=== PATIENT | female | born 1950 | race Caucasian/White ===

== ENCOUNTER 2016-08-31 12:06 | Emergency (ER) | payer OTHER ==
[2016-08-31 12:50] VITALS: BP 105/66
--- NOTE | 2016-08-31 14:54 | UC ---
Tamir Cleary Anna, scribed for Cathy Cooper DO on 08/31/16 at 1358 . Respiratory Complaint HPI - HPI Summary HPI Summary: Patient is a 66 y/o female coming to [facility] [place] presenting with the gradual onset of an intermittent cough that began four days ago. The cough is unproductive today. Yesterday, it was a productive cough with yellow sputum. This has been accompanied by a sore, scratchy throat and rhinorrhea. Her chest has felt congested. She denies SOB, sinus pain, n/v/d, dysuria, rash, KUMARI. She thinks she may have uncovered some mold while sorting a compost pile. Her history is significant for COPD. She has been taking allergy shots, but her typical allergies do not extend into her chest and feel like these symptoms. Patient medications were reviewed this visit. - History of Current Complaint Chief Complaint: UCRespiratory Stated Complaint: RESP ISSUE Hx Obtained From: Patient ?: No Onset/Duration: Gradual Onset, Lasting Days, Still Present Timing: Intermittent Episodes Severity Initially: Moderate Severity Currently: Moderate Aggravating Factors: Allergens - exposure to mold Alleviating Factors: Nothing Associated Signs And Symptoms: Positive: URI, Nasal Congestion. Negative: Sinus Discomfort Related History: Seasonal Allergies - Allergies/Home Medications Allergies/Adverse Reactions: Allergies Allergy/AdvReac Type Severity Reaction Status Date / Time Sulfa Drugs Allergy Unknown Hives/Diff. Unverified 08/31/16 12:51 Breathing/I tching Amoxicillin Allergy Hives/Diff. Verified 08/31/16 12:51 Breathing/I tching Penicillins [PCN] Allergy Hives/Diff. Verified 08/31/16 12:51 Breathing/I tching Home Medications: Home Medications Cholecalciferol TAB* [Vitamin D TAB*] 1,000 unit PO DAILY 08/31/16 [History Confirmed 08/31/16] PMH/Surg Hx/FS Hx/Imm Hx Endocrine History Of: Denies: Diabetes Cardiovascular History Of: Denies: Cardiac Disorders, Hypertension, Congestive Heart Failure Respiratory History Of: Reports: COPD GI/ History Of: Denies: Renal Disease Psychological History Of: Reports: Depression - Surgical History Surgical History: Yes Surgery Procedure, Year, and Place: TUBAL LIGATION - Family History Known Family History: Negative: Cardiac Disease, Hypertension, Diabetes - Social History Occupation: Unemployed Lives: With Family Alcohol Use: Occasionally Substance Use Type: None Smoking Status (MU): Former Smoker Review of Systems Constitutional: Negative Skin: Negative Eyes: Negative ENT: Sore Throat, Nasal Discharge Respiratory: Cough, Other - chest congestion Cardiovascular: Negative Gastrointestinal: Negative Genitourinary: Negative Motor: Negative Neurovascular: Negative Musculoskeletal: Negative Neurological: Negative Psychological: Negative All Other Systems Reviewed And Are Negative: Yes Physical Exam Triage Information Reviewed: Yes Appearance: Well-Appearing, No Pain Distress, Well-Nourished Vital Signs: Initial Vital Signs Temp 100.3 F 08/31/16 12:46 Pulse 73 08/31/16 12:46 Resp 16 08/31/16 12:46 BP 105/66 08/31/16 12:46 Pulse Ox 98 08/31/16 12:46 Vital Signs Reviewed: Yes Eyes: Positive: Conjunctiva Clear. Negative: Discharge ENT: Positive: Hearing grossly normal, TMs normal, Other: - Pale, boggy nasal mucosa. Negative: Tonsillar swelling, Tonsillar exudate, Trismus, Muffled/ hoarse voice Neck: Positive: Supple, Nontender Respiratory: Positive: Lungs clear, Normal breath sounds, No respiratory distress, No accessory muscle use, Other: - Prolonged expiration at bases bilaterally Cardiovascular: Positive: RRR, No Murmur Musculoskeletal Exam: Normal Neurological: Positive: Alert, Muscle Tone Normal Psychological Exam: Normal Psychological: Positive: Age Appropriate Behavior Skin Exam: Other - warm, dry, normal color UC Diagnostic Evaluation - Laboratory O2 Sat by Pulse Oximetry: 98 Respiratory Course/Dx - Differential Dx/Diagnosis Differential Diagnosis/HQI/PQRI: Bronchitis, Exacerbation Of COPD, Lower Resp Infection, Other - allergies, uri Provider Diagnoses: uri. Bronchospasm. Discharge - Discharge Plan Condition: Stable Disposition: HOME Prescriptions: Albuterol HFA INHALER* [Ventolin HFA Inhaler*] 2 puff INH Q4H PRN #1 mdi PRN Reason: Sob/Wheezing Benzonatate CAP* [Tessalon 100 MG CAP*] 100 mg PO TID #30 cap guaiFENesin ER TAB [Mucinex*] 600 mg PO BID PRN #1 box PRN Reason: Cough guaiFENesin/CODIEN 100MG-10MG* [Robitussin AC 100Mg-10Mg*] 5 - 10 ml PO BEDTIME PRN #100 udc MDD 10ml PRN Reason: Cough Patient Education Materials: Upper Respiratory Infection (ED), Bronchospasm (ED ) Referrals: Luiz Chaves MD [Primary Care Provider] - (Follow up in 5-7 days for re- evaluation. Follow up sooner if symptoms worsen or new symptoms develop.) Additional Instructions: REMEMBER, POSTURE IS AN IMPORTANT FACTOR IN SINUS DRAINAGE. MOVE YOUR NECK, BREATHE. INHALED BRONCHODILATORS: You have received a prescription for an inhaled bronchodilator -- a medication which stimulates the airways in the lung to dilate. This improves the flow of air in asthma, bronchitis, and emphysema. These medicines have some similarity to adrenaline, and can cause similar side effects: shakiness, racing heart, and a sense of nervousness. These side effects decrease with time. Contact your doctor if these side effects are severe. Do not over-use the medicine. Too-frequent use of the inhaler may make it ineffective. Call your doctor if the inhaler is not controlling your symptoms at the prescribed doses. COUGH-SUPPRESSANT & EXPECTORANT MEDICATION: You are to use a cough medication as needed for relief of symptoms. This medicine is a combination of an expectorant (to make the mucous thinner and more easily "coughed up") and a cough suppressant (to reduce the frequency of coughing). The cough-suppressant medicine is related to narcotics. You may experience mild nausea and sleepiness. Some patients who are very sensitive to narcotics may have stomach pain from this medicine. Taking the medicine with food reduces these side effects. Do not drive or work with machinery until you know how this medicine affects you. The expectorant should have no side effects. Iodine-containing expectorants (such as organidin) should not be taken by persons with active thyroid disease unless approved by your doctor. Call the doctor if you develop shortness of breath, hives, rash, itching, lightheadedness, or severe nausea and vomiting. THIS MEDICATION CAN MAKE YOU GROGGY AND UNSTABLE OF YOUR FEET. SO PLEASE TAKE CARE WHEN GOING FROM LAYING DOWN TO SEATED OR WHEN STANDING UP. IF YOU FEEL LIGHT HEADED WHEN CHANGING POSITIONS, PLEASE SIT OR LAY BACK DOWN TO AVOID FALLING. ESPECIALLY WHEN WAKING UP AT NIGHT TO PEE. EXPECTORANT MEDICATION: WE SENT IN A SCRIPT FOR MUCINEX SO THAT IT IS EASIER FOR YOU TO PICK THE RIGHT MED AT THE PHARMACY. HOWEVER, YOU CAN ALSO GO TO THE [facility]ORE AND BUY PLAIN GUAIFENESIN WITHOU BINDERS OR FILLERS. An expectorant medicine has been prescribed. This type of drug makes mucous thinner, helping the sinuses, nose, and bronchial tubes to remain free of pus and mucous. Expectorants make a cough less severe and more comfortable, and help infected sinuses drain. In general, antihistamines defeat the purpose of the expectorant by making mucous thicker. They should be avoided unless specifically recommended by your physician. TESSALON PERLES: You have received a prescription for Tessalon Perles (benzonatate). This is a non-narcotic medicine for relief of cough. It usually works in about 15- 20 minutes and lasts around four hours. Tessalon Perles should be swallowed. They should not be chewed or dissolved in the mouth (this can produce temporary numbing of the mouth and choking can occur). If you develop any adverse effects such as wheezing, shortness of breath, hives, rash, itching, or lightheadedness, please return at once. The documentation as recorded by the Tamir mendoza Anna accurately reflects the service I personally performed and the decisions made by me, Cathy Cooper DO.
== END 2016-08-31 14:32 | disposition home or self-care (01) ==
LOC: UCEAST 12:06
DX: J06.9 Acute upper respiratory infection, unspecified (principal); J98.01 Acute bronchospasm; J44.9 Chronic obstructive pulmonary disease, unspecified; F32.9 Major depressive disorder, single episode, unspecified; Z88.1 Allergy status to other antibiotic agents; Z88.0 Allergy status to penicillin; Z88.2 Allergy status to sulfonamides; Z87.891 Personal history of nicotine dependence
CPT/HCPCS: 99202; G0463

== ENCOUNTER 2017-12-14 18:41 | Emergency (ER) | payer OTHER ==
--- OUTSIDE RECORDS SUMMARY | 2017-12-14 18:46 | XMS REPORT ---
:1950 External Reference #:[id number] Author Organization [facility] Address [address] [place] [address] Phone [phone] Care Team Providers Name Role Phone Luiz Chaves M.D. 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 Primary Care Physician Unavailable Payers Type Date Identification Numbers Payment Provider Subscriber Commercial Effective: Policy Number: [id number] [facility] Raina Spence 2017 Group Number: [id number] [id number] Group Name: Medicare Plan [place] [address] PayID: [id number] [facility] Part B Effective: Policy Number: [employer] Raina Gore 2015 [id number] Healthcare Jordy Expires: 2017 Group Number: [id number] [address] Group [place]: [place] [address] PayID: [id number] [place] Part B Effective: Policy Number: [employer] Raina Gore 2012 [id number] Healthcare Yaimavear Expires: 2015 Group Number: [id number] [address] Group [place]: [place] [address] PayID: [id number] Problems Date Description Provider Status Onset: 06/27/2013 Allergic rhinitis Sean Souza M.D. Active Onset: 09/07/2014 Body Mass Index Between 19-24 Adult Sean Souza M.D. Active Onset: 08/30/2015 Body mass index (BMI) 19.9 or less, Sean Souza M.D. Active adult Family History Date Family Member(s) Problem(s) Comments General Seasonal Allergies General Hypertension General Migraine Mother Seasonal Allergies Mother Migraine Social History Type Date Description Comments Marital Status Legal Status: Lives With Spouse Home Environment Has a window air conditioner Home Environment Unfinished Basement Home Environment Finished Basement Home Environment The basement is wet and dehumidifier used Home Environment The basement is dry Home Environment Uses a dehumidifier Home Environment The home is not michael Home Environment The floors are carpeted Home Environment The floors are wood Home Environment Uses natural gas heating Home Environment Uses forced air heating Home Environment [place] Home Environment Water Source: Well Smoke-Free Home is not smoke-free Smoke-Free Work is smoke-free 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 weeks Magnesium Active Tablets 400(241.3Mg Unknown Oxide 000 ) mg Xyzal Active Tablets 5mg 1 by mouth Unknown 000 every day Medications Administered in Office Medication Date Status Form Strength Qnty SIG Indications Ordering Provider Injection 12/01/19 Administered Injection Allergy 18 Injection Injection 11/17/19 Administered Injection Allergy 18 Injection Injection 11/03/19 Administered Injection Allergy 18 Injection Injection 10/20/19 Administered Injection Sean Souza M.D. Injection 10/20/19 Administered Injection Allergy 18 Injection Injection 10/06/19 Administered Injection Allergy 18 Injection Injection 09/24/19 Administered Injection Allergy 18 Injection Injection 09/08/19 Administered Injection Allergy 18 Injection Injection 08/18/19 Administered Injection Allergy 18 Injection Injection 08/04/19 Administered Injection Allergy 18 Injection Injection 07/21/19 Administered Injection Allergy 18 Injection Injection 07/07/19 Administered Injection Allergy 18 Injection Injection 06/23/19 Administered Injection Allergy 18 Injection Injection 06/09/19 Administered Injection Allergy 18 Injection Injection 05/25/19 Administered Injection Allergy 18 Injection Injection 05/11/19 Administered Injection Allergy 18 Injection Injection 04/27/19 Administered Injection Allergy 18 Injection Injection 04/13/19 Administered Injection Allergy 18 Injection Injection 03/25/20 Administered Injection Allergy 17 Injection Injection 03/09/20 Administered Injection Allergy 17 Injection Injection 02/24/20 Administered Injection Allergy 17 Injection Injection 02/10/20 Administered Injection Allergy 17 Injection Injection 01/27/20 Administered Injection Allergy 17 Injection Injection 01/13/20 Administered Injection Sean Gates 17 Aruna Souza Injection 01/13/20 Administered Injection Allergy 17 Injection Injection 12/30/19 Administered Injection Allergy 17 Injection Injection 12/16/19 Administered Injection Sean Gates 17 Aruna Souza Injection 12/16/19 Administered Injection Allergy 17 Injection Injection 12/02/19 Administered Injection Allergy 17 Injection Injection 11/18/19 Administered Injection Allergy 17 Injection Injection 11/04/19 Administered Injection Allergy 17 Injection Injection 10/21/19 Administered Injection Allergy 17 Injection Injection 10/07/19 Administered Injection Allergy 17 Injection Injection 09/23/19 Administered Injection Allergy 17 Injection Injection 09/09/19 Administered Injection Allergy 17 Injection Injection 08/26/19 Administered Injection Allergy 17 Injection Injection 08/12/19 Administered Injection Allergy 17 Injection Injection 07/29/19 Administered Injection Allergy 17 Injection Injection 07/15/19 Administered Injection Sean Gates 17 Aruna Souza Injection 07/15/19 Administered Injection Allergy 17 Injection Injection 07/01/19 Administered Injection Allergy 17 Injection Injection 06/17/19 Administered Injection Allergy 17 Injection Injection 06/02/19 Administered Injection Allergy 17 Injection Injection 05/19/19 Administered Injection Allergy 17 Injection Injection 05/05/19 Administered Injection Allergy 17 Injection Injection 04/23/19 Administered Injection Allergy 17 Injection Injection 04/14/19 Administered Injection Allergy 17 Injection Injection 04/02/20 Administered Injection Allergy 16 Injection Injection 03/17/20 Administered Injection Allergy 16 Injection Injection 03/03/20 Administered Injection Allergy 16 Injection Injection 02/18/20 Administered Injection Allergy 16 Injection Injection 02/04/20 Administered Injection Sean Gates 16 Aruna Souza Injection 02/04/20 Administered Injection Allergy 16 Injection Injection 01/21/20 Administered Injection Allergy 16 Injection Injection 01/07/20 Administered Injection Sean Gates 16 Aruna Souza Injection 01/07/20 Administered Injection Allergy 16 Injection Injection 12/24/19 Administered Injection Allergy 16 Injection Injection 12/12/19 Administered Injection Allergy 16 Injection Injection 11/26/19 Administered Injection Allergy 16 Injection Injection 11/12/19 Administered Injection Allergy 16 Injection Injection 10/29/19 Administered Injection Sean WColton 16 Aruna Souza Injection 10/29/19 Administered Injection Allergy 16 Injection Injection 10/15/19 Administered Injection Sean WColton 16 Aruna Souza Injection 10/15/19 Administered Injection Allergy 16 Injection Injection 10/01/19 Administered Injection Allergy 16 Injection Injection 09/17/19 Administered Injection Allergy 16 Injection Injection 09/05/19 Administered Injection Allergy 16 Injection Injection 08/27/19 Administered Injection Allergy 16 Injection Injection 08/20/19 Administered Injection Sean WColton 16 Aruna Souza Injection 08/20/19 Administered Injection Allergy 16 Injection Injection 08/13/19 Administered Injection Allergy 16 Injection Injection 08/06/19 Administered Injection Allergy 16 Injection Injection 07/30/19 Administered Injection Allergy 16 Injection Injection 07/23/19 Administered Injection Allergy 16 Injection Injection 07/16/19 Administered Injection Allergy 16 Injection Injection 07/09/19 Administered Injection Allergy 16 Injection Injection 07/02/19 Administered Injection Allergy 16 Injection Injection 06/25/19 Administered Injection Allergy 16 Injection Injection 06/18/19 Administered Injection Allergy 16 Injection Injection 06/11/19 Administered Injection Allergy 16 Injection Injection 06/04/19 Administered Injection Allergy 16 Injection Injection 05/28/19 Administered Injection Allergy 16 Injection Injection 05/21/19 Administered Injection Allergy 16 Injection Injection 05/14/19 Administered Injection Allergy 16 Injection Injection 05/07/19 Administered Injection Allergy 16 Injection Injection 04/30/19 Administered Injection Allergy 16 Injection Injection 04/23/19 Administered Injection Allergy 16 Injection Injection 04/09/19 Administered Injection Allergy 16 Injection Injection 04/02/20 Administered Injection Allergy 15 Injection Injection 03/26/20 Administered Injection Allergy 15 Injection Injection 03/19/20 Administered Injection Allergy 15 Injection Injection 03/12/20 Administered Injection Allergy 15 Injection Injection 03/05/20 Administered Injection Allergy 15 Injection Injection 02/27/20 Administered Injection Sean WColton 15 Aruna Souza Injection 02/27/20 Administered Injection Allergy 15 Injection Injection 02/20/20 Administered Injection Allergy 15 Injection Injection 02/13/20 Administered Injection Allergy 15 Injection Injection 02/06/20 Administered Injection Allergy 15 Injection Injection 01/30/20 Administered Injection Allergy 15 Injection Injection 01/23/20 Administered Injection Allergy 15 Injection Injection 01/16/20 Administered Injection Allergy 15 Injection Injection 01/09/20 Administered Injection Allergy 15 Injection Injection 01/02/20 Administered Injection Allergy 15 Injection Injection 12/26/19 Administered Injection Allergy 15 Injection Injection 12/19/19 Administered Injection Allergy 15 Injection Injection 12/14/19 Administered Injection Allergy 15 Injection Injection 12/05/19 Administered Injection Allergy 15 Injection Injection 11/28/19 Administered Injection Allergy 15 Injection Injection 11/21/19 Administered Injection Allergy 15 Injection Injection 11/14/19 Administered Injection Allergy 15 Injection Injection 11/07/19 Administered Injection Allergy 15 Injection Injection 10/31/19 Administered Injection Allergy 15 Injection Injection 10/24/19 Administered Injection Allergy 15 Injection Injection 10/17/19 Administered Injection Allergy 15 Injection Injection 10/03/19 Administered Injection Allergy 15 Injection Injection 09/19/19 Administered Injection Allergy 15 Injection Injection 09/05/19 Administered Injection Allergy 15 Injection Injection 08/31/19 Administered Injection Allergy 15 Injection Injection 08/24/19 Administered Injection Allergy 15 Injection Injection 08/15/19 Administered Injection Allergy 15 Injection Injection 08/08/19 Administered Injection Allergy 15 Injection Injection 08/01/19 Administered Injection Allergy 15 Injection Injection 07/25/19 Administered Injection Allergy 15 Injection Injection 07/18/19 Administered Injection Allergy 15 Injection Injection 07/11/19 Administered Injection Allergy 15 Injection Injection 07/04/19 Administered Injection Allergy 15 Injection Injection 06/27/19 Administered Injection Allergy 15 Injection Injection 06/20/19 Administered Injection Allergy 15 Injection Injection 06/13/19 Administered Injection Allergy 15 Injection Injection 06/06/19 Administered Injection Allergy 15 Injection Injection 05/29/19 Administered Injection Allergy 15 Injection Injection 05/22/19 Administered Injection Allergy 15 Injection Injection 05/15/19 Administered Injection Allergy 15 Injection Injection 05/08/19 Administered Injection Allergy 15 Injection Injection 05/01/19 Administered Injection Allergy 15 Injection Injection 04/24/19 Administered Injection Allergy 15 Injection Injection 04/17/19 Administered Injection Allergy 15 Injection Injection 04/10/19 Administered Injection Allergy 15 Injection Injection 03/27/20 Administered Injection Allergy 14 Injection Injection 03/15/20 Administered Injection Allergy 14 Injection Injection 03/01/20 Administered Injection Allergy 14 Injection Injection 02/16/20 Administered Injection Allergy 14 Injection Injection 02/02/20 Administered Injection Allergy 14 Injection Injection 10/15/20 Administered Injection Allergy 14 Injection Injection 10/01/20 Administered Injection Allergy 14 Injection Injection 09/17/20 Administered Injection Allergy 14 Injection Injection 09/03/20 Administered Injection Allergy 14 Injection Injection 08/18/20 Administered Injection Allergy 14 Injection Injection 08//20 Administered Injection Allergy 14 Injection Injection 08//20 Administered Injection Allergy 14 Injection Injection 08/06/20 Administered Injection Allergy 14 Injection Injection 08//20 Administered Injection Allergy 14 Injection Injection 07/30/20 Administered Injection Allergy 14 Injection Injection 0728/20 Administered Injection Allergy 14 Injection Injection 07/23/20 Administered Injection Allergy 14 Injection Injection 07//20 Administered Injection Allergy 14 Injection Injection 07/16/20 Administered Injection Allergy 14 Injection Injection 07/14/20 Administered Injection Allergy 14 Injection Injection 07//20 Administered Injection Allergy 14 Injection Injection 07/07/20 Administered Injection Allergy 14 Injection Injection 07/02/20 Administered Injection Allergy 14 Injection Injection 06/30/20 Administered Injection Allergy 14 Injection Injection 06/27/20 Administered Injection Allergy 14 Injection Injection 06/25/20 Administered Injection Allergy 14 Injection Injection 06/16/20 Administered Injection Allergy 14 Injection Injection 06/13/20 Administered Injection Allergy 14 Injection Injection 06//20 Administered Injection Allergy 14 Injection Injection 06/06/20 Administered Injection Allergy 14 Injection Injection 06/02/20 Administered Injection Allergy 14 Injection Injection 05/30/20 Administered Injection Allergy 14 Injection Injection 05/28/20 Administered Injection Allergy 14 Injection Injection 05/23/20 Administered Injection Allergy 14 Injection Injection 05/19/20 Administered Injection Allergy 14 Injection Injection 05/16/20 Administered Injection Allergy 14 Injection Injection 05/12/20 Administered Injection Allergy 14 Injection Injection 05/09/20 Administered Injection Allergy 14 Injection Injection 05/07/20 Administered Injection Allergy 14 Injection Injection 04/30/20 Administered Injection Allergy 14 Injection Injection 04/28/20 Administered Injection Allergy 14 Injection Injection 04/23/20 Administered Injection Allergy 14 Injection Immunizations CPT Code Status Date Vaccine Reaction Lot # [id number] Given Unknown Pneumococcal Vaccine Jan 2016 Given Unknown Influenza Vaccine 22090 Given Unknown Influenza Vaccine Vital Signs Date Vital Result Comment 12/03/2017 Height 63 inches 5'3" Weight 120.00 lb Weight in kg's 54.432 Respiratory Rate 18 /min Heart Rate 62 /min O2 % BldC Oximetry 97 % BP Systolic 110 mmHg BP Diastolic 63 mmHg BMI (Body Mass Index) 21.3 kg/m2 11/06/2016 Height 63 inches 5'3" Weight 117.00 lb Weight in kg's 53.071 Respiratory Rate 18 /min Heart Rate 61 /min O2 % BldC Oximetry 98 % BP Systolic 106 mmHg BP Diastolic 72 mmHg BMI (Body Mass Index) 20.7 kg/m2 08/30/2015 Height 63 inches 5'3" Weight 112.00 lb Weight in kg's 50.803 Respiratory Rate 18 /min Heart Rate 62 /min O2 % BldC Oximetry 98 % BP Systolic 110 mmHg BP Diastolic 68 mmHg BMI (Body Mass Index) 19.8 kg/m2 09/07/2014 Height 63 inches 5'3" Weight 117.00 lb Weight in kg's 53.071 Heart Rate 66 /min O2 % BldC Oximetry 97 % BP Systolic 118 mmHg BP Diastolic 70 mmHg BMI (Body Mass Index) 20.7 kg/m2 07/07/2013 Height 63 inches 5'3" Weight 121.00 lb Weight in kg's 54.886 Respiratory Rate 16 /min Heart Rate 63 /min O2 % BldC Oximetry 96 % BP Systolic 108 mmHg BP Diastolic 78 mmHg BMI (Body Mass Index) 21.4 kg/m2 03/31/2013 Height 63 inches 5'3" Weight 121.00 lb Weight in kg's 54.886 Respiratory Rate 14 /min Heart Rate 67 /min O2 % BldC Oximetry 98 % BMI (Body Mass Index) 21.4 kg/m2 03/10/2013 Height 63 inches 5'3" Weight 121.00 lb Weight in kg's 54.886 Respiratory Rate 18 /min Heart Rate 74 /min O2 % BldC Oximetry 98 % BP Systolic 116 mmHg BP Diastolic 80 mmHg BMI (Body Mass Index) 21.4 kg/m2 Results Description No Information Procedures Date CPT Code Description Status 11/30/2017 27464 Injection Completed 11/16/2017 22337 Injection Completed 11/02/2017 19798 Injection Completed 10/19/2017 49177 Injection Completed 10/19/2017 95857 Injection Completed 10/12/2017 85334 Extract 1-10 Completed 10/05/2017 66015 Injection Completed 09/23/2017 76497 Injection Completed 09/07/2017 61857 Injection Completed 08/17/2017 44111 Injection Completed 08/03/2017 20019 Injection Completed 07/20/2017 27282 Injection Completed 07/06/2017 32868 Injection Completed 06/22/2017 76404 Injection Completed 06/08/2017 78431 Injection Completed 05/25/2017 29629 Injection Completed 05/21/2017 71660 Extract 1-10 Completed 05/21/2017 35516 Extract 1-10 Completed 05/11/2017 70594 Injection Completed 04/27/2017 34579 Injection Completed 04/13/2017 55866 Injection Completed 03/25/2017 40785 Injection Completed 03/09/2017 65742 Injection Completed 02/23/2017 50315 Injection Completed 02/09/2017 52524 Injection Completed 02/09/2017 15026 Extract 1-10 Completed 01/26/2017 77751 Injection Completed 01/12/2017 30216 Injection Completed 01/12/2017 46663 Injection Completed 12/29/2016 61497 Injection Completed 12/15/2016 67395 Injection Completed 12/15/2016 81907 Injection Completed 12/01/2016 33672 Injection Completed 11/17/2016 42778 Injection Completed 11/03/2016 53378 Injection Completed 10/20/2016 73771 Injection Completed 10/06/2016 26822 Injection Completed 09/22/2016 33189 Injection Completed 09/08/2016 54646 Injection Completed 08/25/2016 74563 Injection Completed 08/11/2016 30938 Injection Completed 07/28/2016 89619 Injection Completed 07/14/2016 72630 Extract 1-10 Completed 07/14/2016 46732 Injection Completed 07/14/2016 78128 Injection Completed 06/30/2016 65942 Injection Completed 06/16/2016 81627 Injection Completed 06/02/2016 26492 Injection Completed 05/19/2016 46779 Injection Completed 05/05/2016 31807 Injection Completed 04/23/2016 26945 Injection Completed 04/14/2016 40347 Injection Completed 04/02/2016 01867 Injection Completed 03/17/2016 61608 Injection Completed 03/03/2016 20274 Injection Completed 02/18/2016 41484 Injection Completed 02/04/2016 92893 Injection Completed 02/04/2016 79308 Injection Completed 01/21/2016 90512 Injection Completed 01/07/2016 02713 Injection Completed 01/07/2016 69139 Injection Completed 12/24/2015 50002 Injection Completed 12/12/2015 17246 Injection Completed 11/26/2015 77833 Injection Completed 11/12/2015 32458 Injection Completed 10/29/2015 26393 Injection Completed 10/29/2015 78959 Injection Completed 10/15/2015 28671 Injection Completed 10/15/2015 46893 Injection Completed 10/01/2015 28446 Injection Completed 09/26/2015 92030 Extract 1-10 Completed 09/17/2015 12990 Injection Completed 09/05/2015 10873 Injection Completed 08/27/2015 66411 Injection Completed 08/20/2015 80036 Injection Completed 08/20/2015 73878 Injection Completed 08/13/2015 67494 Injection Completed 08/06/2015 23766 Injection Completed 07/30/2015 11245 Injection Completed 07/23/2015 08537 Injection Completed 07/16/2015 20671 Extract 1-10 Completed 07/16/2015 99283 Injection Completed 07/09/2015 50753 Injection Completed 07/02/2015 93459 Injection Completed 06/25/2015 50276 Injection Completed 06/18/2015 27506 Injection Completed 06/11/2015 17584 Injection Completed 06/04/2015 37931 Injection Completed 05/28/2015 62606 Injection Completed 05/21/2015 06684 Injection Completed 05/14/2015 13353 Injection Completed 05/07/2015 16545 Extract 1-10 Completed 05/07/2015 27587 Injection Completed 04/30/2015 49969 Injection Completed 04/23/2015 75910 Injection Completed 04/09/2015 08145 Injection Completed 04/02/2015 15546 Injection Completed 03/26/2015 55099 Injection Completed 03/19/2015 18653 Injection Completed 03/12/2015 92677 Injection Completed 03/05/2015 40573 Injection Completed 02/26/2015 90456 Injection Completed 02/26/2015 99834 Injection Completed 02/19/2015 98888 Extract 1-10 Completed 02/19/2015 50952 Injection Completed 02/12/2015 56064 Injection Completed 02/05/2015 72373 Injection Completed 01/29/2015 22378 Injection Completed 01/22/2015 75089 Injection Completed 01/15/2015 01735 Injection Completed 01/08/2015 89699 Injection Completed 01/01/2015 51498 Injection Completed 12/25/2014 32522 Injection Completed 12/18/2014 25380 Injection Completed 12/13/2014 19112 Extract 1-10 Completed 12/13/2014 79345 Injection Completed 12/04/2014 56357 Injection Completed 11/27/2014 48465 Injection Completed 11/20/2014 22677 Injection Completed 11/13/2014 23050 Injection Completed 11/06/2014 58261 Injection Completed 10/30/2014 30829 Injection Completed 10/23/2014 06117 Injection Completed 10/16/2014 38883 Injection Completed 10/02/2014 73097 Injection Completed 09/18/2014 66128 Injection Completed 09/18/2014 80418 Extract 1-10 Completed 09/04/2014 69170 Injection Completed 08/30/2014 66556 Injection Completed 08/23/2014 76772 Injection Completed 08/14/2014 94213 Injection Completed 08/07/2014 17845 Injection Completed 07/31/2014 48303 Injection Completed 07/24/2014 04361 Injection Completed 07/17/2014 06443 Injection Completed 07/10/2014 53867 Injection Completed 07/03/2014 13797 Extract 1-10 Completed 07/03/2014 43648 Injection Completed 06/26/2014 73397 Injection Completed 06/19/2014 34919 Injection Completed 06/12/2014 80843 Injection Completed 06/05/2014 43832 Injection Completed 05/29/2014 16491 Injection Completed 05/22/2014 43442 Injection Completed 05/15/2014 57126 Injection Completed 05/08/2014 65409 Injection Completed 05/01/2014 17333 Injection Completed 04/24/2014 51180 Extract 1-10 Completed 04/24/2014 50254 Injection Completed 04/17/2014 82654 Injection Completed 04/10/2014 74383 Injection Completed 03/27/2014 26070 Injection Completed 03/15/2014 80519 Injection Completed 03/01/2014 60961 Injection Completed 02/15/2014 92124 Injection Completed 02/01/2014 05537 Injection Completed 01/18/2014 78628 Injection Completed 01/04/2014 47678 Injection Completed 12/21/2013 71585 Extract 1-10 Completed 12/21/2013 16787 Injection Completed 12/07/2013 14140 Injection Completed 11/21/2013 50908 Injection Completed 11/16/2013 30579 Injection Completed 11/14/2013 22272 Injection Completed 11/09/2013 30375 Injection Completed 11/07/2013 65553 Injection Completed 11/02/2013 81118 Injection Completed 10/31/2013 15360 Injection Completed 10/26/2013 66742 Injection Completed 10/24/2013 35979 Extract 1-10 Completed 10/24/2013 58252 Injection Completed 10/19/2013 64441 Injection Completed 10/17/2013 41104 Injection Completed 10/12/2013 86521 Injection Completed 10/10/2013 43994 Injection Completed 10/05/2013 95835 Injection Completed 10/03/2013 03948 Injection Completed 09/30/2013 36813 Injection Completed 09/28/2013 64930 Injection Completed 09/19/2013 61911 Injection Completed 09/16/2013 48753 Injection Completed 09/12/2013 88118 Injection Completed 09/09/2013 19648 Injection Completed 09/05/2013 77058 Injection Completed 09/02/2013 93427 Extract 1-10 Completed 09/02/2013 90694 Injection Completed 08/31/2013 06529 Injection Completed 08/26/2013 37069 Injection Completed 08/22/2013 83077 Injection Completed 08/19/2013 27122 Injection Completed 08/15/2013 29747 Injection Completed 08/12/2013 39331 Injection Completed 08/10/2013 41305 Injection Completed 08/03/2013 09296 Injection Completed 08/01/2013 44323 Injection Completed 07/27/2013 63633 Injection Completed 07/25/2013 62596 Extract 1-10 Completed 03/31/2013 47262 Oxygen Level - Pulse Oximiter Completed 03/10/2013 34009 Skin Test Scratch # Of Units ____ Completed 03/10/2013 52769 Oxygen Level - Pulse Oximiter Completed 03/10/2013 98474 Pulmonary Function Test Completed Encounters Type Date Location Provider CPT E/M Dx Office Visit 12/03/2017 10:20a PRECIOUS [facility] 12965 J30.1 J30.89 J30.2 J30.81 Office Visit 11/06/2016 11:00a Vernon Souza M.D. 66572 J30.89 Office Visit 08/30/2015 3:20p Vernon Souza M.D. 51511 J30.89 Z68.1 Office Visit 09/07/2014 11:00a Vernon Souza M.D. [id number] V85.1 Office Visit 07/07/2013 4:00p Vernon Souza M.D. [id number] 477.8 Office Visit 03/31/2013 3:20p Vernon Souza M.D. [id number] 477.8 Office Visit 03/10/2013 2:20p [place] Sean Souza M.D. [id number] 477.8 Plan of Care 12/03/2017 - Yusra Calderon, [id number] Allergic rhinitis due to [id number] Other allergic [id number] Other seasonal allergic [id number] Allergic rhinitis due to animal (cat) (dog) hair and danderFollow up:1 yearRecommendations:Continue all medications as prescribed.Refrain from wearing perfumes/scented colognes while visitingour office. Continue the Xyzal 1 daily as needed Continue IT as tolerated per schedule. Consider not smoking, you will feel so much better
[2017-12-14 19:05] VITALS: BP 120/79
--- NOTE | 2017-12-14 19:27 | UC ---
Abdominal Pain Female HPI - HPI Summary HPI Summary: This pt is a 67 y/o female presenting to [facility] c/o lower chest and upper abd pain for the past 10 days now. Pt states that she has noticed her pain increases in intensity after eating. Pt reports her pain is located on the "bra line" lower chest and upper abd area. She states that it is a sharp and squeezing pain that lasts about 3 seconds radiating from the left side into the right side. Pt notes her pain then dissipates on its own. Today she had a bite of a donut, had pain and felt nauseous. This episode lasted around 15-20 minutes. She reports her pain is every day intermittently. Denies decreased appetite, rectal bleeding, bloody stools, SOB, fever, chills. Pt has been able to drink water ok. Denies hx of cholecystectomy, GERD. PMHx includes tubal ligation, internal bleeding hemorrhoids. She is on magnesium, vitamin D, Clindamycin. Pt was placed on Clindamycin by her dentist for a tooth infection, she has 2 doses left. Her upper abd/lower chest pain began prior to starting clindamycin. - History of Current Complaint Chief Complaint: UCGeneralIllness Stated Complaint: RIB PAIN Time Seen by Provider: 12/14/17 19:16 Hx Obtained From: Patient Hx Last Menstrual Period: post menopause ?: No Onset/Duration: Lasting Days, Still Present Timing: Intermittent Episodes Lasting: - seconds to minutes Severity Initially: Mild Severity Currently: None Pain Intensity: 0 Pain Scale Used: 0-10 Numeric Location: Other - lower chest and upper abd Radiates: No Character: Sharp, Other - and squeezing Aggravating Factor(s): Food Alleviating Factor(s): Nothing Associated Signs and Symptoms: Positive: Nausea. Negative: Fever, Cough, Back Pain, Constipation, Blood in Stool, Urinary Symptoms, Vaginal Bleeding, Vaginal Discharge, Vomiting, Diarrhea Allergies/Adverse Reactions: Allergies Allergy/AdvReac Type Severity Reaction Status Date / Time amoxicillin Allergy Hives/Diff. Verified 07/13/17 14:45 Breathing/I tching Penicillins Allergy Hives/Diff. Verified 07/13/17 14:45 Breathing/I tching Sulfa (Sulfonamide Allergy Hives/Diff. Verified 07/13/17 14:45 Antibiotics) Breathing/I tching Home Medications: Home Medications Clindamycin HCl 300 mg 12/14/17 [History] PMH/Surg Hx/FS Hx/Imm Hx Other Endocrine History: DENIES: diabetes Other Cardiovascular History: DENIES: HTN Other GI/ History: DENIES: GERD - Surgical History Surgical History: Yes Surgery Procedure, Year, and Place: TUBAL LIGATION - Family History Known Family History: Negative: Cardiac Disease, Hypertension, Diabetes - Social History Alcohol Use: Occasionally Substance Use Type: None Smoking Status (MU): Former Smoker Review of Systems Constitutional: Negative Skin: Negative Eyes: Negative ENT: Negative Respiratory: Negative Cardiovascular: Negative Gastrointestinal: Abdominal Pain - upper abd and lower chest, Nausea, Other - NEG: vomiting Genitourinary: Negative Motor: Negative Neurovascular: Negative Musculoskeletal: Negative Neurological: Negative Psychological: Negative All Other Systems Reviewed And Are Negative: Yes Physical Exam - Summary Physical Exam Summary: General: well-appearing, no pain distress Skin: warm, color reflects adequate perfusion, dry Head: normal Eyes: EOMI, ESTEFANI ENT: normal Neck: supple, nontender Respiratory: CTA, breath sounds present Cardiovascular: RRR Abdomen: soft, nontender Bowel: present Musculoskeletal: normal, strength/ROM intact Neurological: normal, sensory/motor intact, A&O x3 Psychological: affect/mood appropriate Triage Information Reviewed: Yes Vital Signs: Initial Vital Signs Temp 97.8 F 12/14/17 18:57 Pulse 69 12/14/17 18:57 Resp 16 12/14/17 18:57 BP 120/79 12/14/17 18:57 Pulse Ox 100 12/14/17 18:57 Vital Signs Reviewed: Yes Abd Pain Female Course/Dx - Course Course Of Treatment: Medications reviewed. Allergies noted. THE PAIN IS INTERMITTENT. IT STARTS IN THE LEFT UPPER ABD AND RADIATES TO THE RIGHT. NO CHEST PAIN. EATING MAKES THE PAIN WORSE. DISCUSSED GOING TO THE EMERGENCY DEPARTMENT FOR EVALUATION SO THAT LAB RESULTS COULD BE OBTAINED TODAY. THE PATIENT UNDERSTANDS BLOOD WORK FROM THE CLINIC WILL NOT BE AVAILABLE UNTIL TOMMOROW AND WISHES TO BE EVALUATED HERE IN CLINIC. LAB RESULTS ARE PENDING. THE PATIENT WILL CONTACT HER PMD TOMORROW ABOUT U/S AND F/U. IF THE PATIENT RETURNS TO OUR CLINIC, I RECOMMEND GETTING A GALLBLADDER U/S. F/U PMD. DISCUSSED GOING TO THE EMERGENCY DEPARTMENT IF WORSE. - Differential Dx/Diagnosis Provider Diagnoses: UPPER ABDOMINAL PAIN Discharge - Sign-Out/Discharge Documenting (check all that apply): Patient Departure - Discharge All imaging exams completed and their final reports reviewed: No Studies - Discharge Plan Condition: Stable Disposition: HOME Patient Education Materials: Epigastric Pain (ED) Referrals: Luiz Chaves MD [Primary Care Provider] - Additional Instructions: FOLLOW UP WITH YOUR DOCTOR. YOUR BLOOD LAB WORK IS PENDING. GO TO THE EMERGENCY DEPARTMENT FOR ANY WORSENING OF YOUR CONDITION OR QUESTIONS OR CONCERNS. - Billing Disposition and Condition Condition: STABLE Disposition: Home - Attestation Statements Document Initiated by Scribe: Yes Documenting Scribe: Qiana Her Provider For Whom Ori is Documenting (Include Credential): Jose Wilson MD Scribe Attestation: Qiana Cleary scribed for Jose Wilson MD on 12/14/17 at 2121. Scribe Documentation Reviewed: Yes Provider Attestation: The documentation as recorded by the Qiana mendoza accurately reflects the service I personally performed and the decisions made by , Jose Wilson MD
[2017-12-15 12:24] LABS: ABS Basophils 0.1 10^3/ul (0-0.2); ABS Eosinophils 0.1 10^3/ul (0-0.6); ABS Monocytes 0.4 10^3/ul (0-0.8); ABS Neutrophils 4.2 10^3/ul (1.5-7.7); ABS Nucleated RBC 0 10^3/ul; Eosinophil % 1.1 % (0-6); Hematocrit 33 % (35-47); Hemoglobin 10.7 g/dl (12.0-16.0); Lymphocyte % 30.1 % (25-47); Mean Corpuscular HGB Conc 32 g/dl (31-36); Mean Corpuscular Hemoglobin 27 pg (27-31); Mean Corpuscular Volume 83 fL (80-97); Mean Platelet Volume 8.8 um3 (7.4-10.4); Nucleated Red Blood Cells % 0.1; Platelet Count 254 10^3/ul (150-450); Red Blood Count 3.97 10^6/ul (4.00-5.40); Red Cell Distribution Width 15 % (10.5-15); White Blood Count 6.7 10^3/ul (3.5-10.8)
[2017-12-15 12:37] LABS: EGFR Non-African American 67.1 (>60)
--- NOTE | 2017-12-16 07:31 | UC ---
- Progress Note Progress Note: PLS CALL PT - CMP, CRP WNL. CBC WITH SLIGHT ANEMIA LIKELY BASELINE. F/U PCP ADVISED. NO CHANGE IN MGMT. - ISIS PERSON MD Discharge - Sign-Out/Discharge Documenting (check all that apply): Post-Discharge Follow Up All imaging exams completed and their final reports reviewed: No Studies - Discharge Plan Condition: Stable Disposition: HOME Patient Education Materials: Epigastric Pain (ED) Referrals: Luiz Chaves MD [Primary Care Provider] - Additional Instructions: FOLLOW UP WITH YOUR DOCTOR. YOUR BLOOD LAB WORK IS PENDING. GO TO THE EMERGENCY DEPARTMENT FOR ANY WORSENING OF YOUR CONDITION OR QUESTIONS OR CONCERNS. - Billing Disposition and Condition Condition: STABLE Disposition: Home
== END 2017-12-14 20:20 | disposition home or self-care (01) ==
LOC: UCEAST 18:41
DX: R10.10 Upper abdominal pain, unspecified (principal); R07.89 Other chest pain; R11.0 Nausea; Z88.0 Allergy status to penicillin; Z88.2 Allergy status to sulfonamides; Z87.891 Personal history of nicotine dependence
CPT/HCPCS: 36415; 80053; 83690; 85025; 86140; 99211; G0463

== ENCOUNTER 2018-01-10 21:29 | Emergency (ER) | payer OTHER ==
[2018-01-10 21:41] VITALS: BP 129/86
[2018-01-10] MEDS ORDERED: Benzoin Compound STICK ONE (21:55)
--- NOTE | 2018-01-10 21:58 | UC ---
Laceration HPI - HPI Summary HPI Summary: The patient is a 67-year-old female who sustained a laceration to her right eyebrow when she inadvertently hit herself with an extension cord. Her tetanus is up-to-date. He did not hear her eye. - History Of Current Complaint Chief Complaint: UCLaceration Stated Complaint: FOREHEAD LAC Time Seen by Provider: 01/10/18 21:51 Hx Obtained From: Patient Hx Last Menstrual Period: post menopause Laceration Location: Face Mechanism Of Injury: Blunt Trauma Onset/Duration: Sudden Onset Severity: Moderate Pain Intensity: 8 - initially Pain Scale Used: 0-10 Numeric Aggravating Factors: Nothing Facial Trauma: 1 - LAC - Allergies/Home Medications Allergies/Adverse Reactions: Allergies Allergy/AdvReac Type Severity Reaction Status Date / Time amoxicillin Allergy Hives/Diff. Verified 01/10/18 21:40 Breathing/I tching Penicillins Allergy Hives/Diff. Verified 01/10/18 21:40 Breathing/I tching Sulfa (Sulfonamide Allergy Hives/Diff. Verified 01/10/18 21:40 Antibiotics) Breathing/I tching PMH/Surg Hx/FS Hx/Imm Hx Previously Healthy: Yes GI/ History: Kidney Stones - Surgical History Surgical History: Yes Surgery Procedure, Year, and Place: TUBAL LIGATION - Family History Known Family History: Negative: Cardiac Disease, Hypertension, Diabetes - Social History Alcohol Use: None Substance Use Type: None Smoking Status (MU): Former Smoker - Immunization History Most Recent Tetanus Shot: 07/13/17 Review of Systems Constitutional: Negative Skin: Negative Eyes: Negative ENT: Negative Respiratory: Negative Cardiovascular: Negative Gastrointestinal: Negative Genitourinary: Negative Motor: Negative Neurovascular: Negative Musculoskeletal: Negative Neurological: Negative Psychological: Negative Is Patient Immunocompromised?: No All Other Systems Reviewed And Are Negative: Yes Physical Exam Triage Information Reviewed: Yes Appearance: Well-Appearing, No Pain Distress, Well-Nourished Vital Signs: Initial Vital Signs Temp 98.3 F 01/10/18 21:35 Pulse 73 01/10/18 21:35 Resp 16 01/10/18 21:35 BP 129/86 10/07/18 21:35 Pulse Ox 98 01/10/18 21:35 Vital Signs Reviewed: Yes Eyes: Positive: Conjunctiva Clear ENT: Positive: Hearing grossly normal. Negative: Pharyngeal erythema, Nasal congestion, Nasal drainage, Trismus, Muffled voice, Hoarse voice Neck: Positive: Supple, Nontender Respiratory: Positive: Lungs clear, Normal breath sounds, No respiratory distress Cardiovascular: Positive: RRR, No Murmur Musculoskeletal: Positive: ROM Intact, No Edema Neurological: Positive: Alert Psychological Exam: Normal Skin Exam: Other - see image Laceration Repair - Laceration Repair 1 Description: Linear Laceration Size After Repair: Length (cm) - 0.3, Width (mm) - 1, Depth (mm) - 1 Modified For Repair: No Cleansing Completed Via Routine Prep: Yes Irrigation With Pressure Irrigation Device: Yes Closure Material: Skin Adhesive Laceration Course/Dx - Differential Dx - Laceration/Wound Provider Diagnoses: right eyebrow lac. skin adhesive repair Discharge - Sign-Out/Discharge Documenting (check all that apply): Patient Departure All imaging exams completed and their final reports reviewed: No Studies - Discharge Plan Condition: Stable Disposition: HOME Patient Education Materials: Skin Adhesive Care (ED) Referrals: Luiz Chaves MD [Primary Care Provider] - Additional Instructions: tylenol or advil if neede you may end up with a black eye call for any questions return for any problems - Billing Disposition and Condition Condition: STABLE Disposition: Home
== END 2018-01-10 22:19 | disposition home or self-care (01) ==
LOC: UCEAST 21:29
DX: S01.111A Laceration without foreign body of right eyelid and periocular area, initial encounter (principal); W22.8XXA Striking against or struck by other objects, initial encounter; Z87.891 Personal history of nicotine dependence; Y92.9 Unspecified place or not applicable; Z88.0 Allergy status to penicillin; Z88.2 Allergy status to sulfonamides
CPT/HCPCS: 12001; 99211; G0463